=== PATIENT | male | born 1960 | race Caucasian/White ===

== ENCOUNTER 2024-07-03 14:17 | Emergency (ER) | payer OTHER, SELFPAY ==
[2024-07-03 14:22] VITALS: BP 164/109; PULSE 65; TEMP 36.4; O2SAT 94; BMI 30.5
--- NOTE | 2024-07-03 14:33 | CT_ITS ---
[address] [address] Patient Name: KIMBERLY BAEZA MRN: [id number] date: 1960 Sex: M Assigned Patient Location: ER Current Patient Location: Accession/Order Number: [id number] Exam Date: 07/03/2024 14:58 Report Date: 07/03/2024 15:31 At the request of: EMIL CAIN Procedure: CT abdomen pelvis wo con EXAMINATION: CT abdomen pelvis wo con HISTORY: Hematuria COMPARISON: No relevant comparison available. TECHNIQUE: Axial, Coronal, and Sagittal images were obtained without and/or with IV contrast as indicated by examination type. Dose reduction techniques were achieved by using automated exposure control and/or adjustment of mA and/or kV according to patient size and/or use of iterative reconstruction technique. FINDINGS: LUNG BASES: Curvilinear opacity within lateral left lung base suspected to represent scarring. LIVER: No enlargement, atrophy, suspicious density, or significant focal lesion. BILIARY: No dilatation or calcification. PANCREAS: No lesion, fluid collection, or abnormal duct dilatation. SPLEEN: No enlargement or focal lesion. ADRENALS: No mass or enlargement. KIDNEYS: Low-density left renal cysts favoring benign etiology. No mass, obstruction, or calcification. BOWEL/MESENTERY: No visible mass, obstruction, or bowel wall thickening. AORTA/VASCULAR: No aneurysm or dissection. RETROPERITONEUM: No mass or adenopathy. LYMPH NODES: No adenopathy. URINARY BLADDER: 7.0 x 5.3 x 3.8 cm mass along left lateral wall within the bladder. Dense debris possibly representing blood products within posterior aspect of the bladder versus additional mass. Borderline wall thickening of the anterior wall of the urinary bladder. Multiple calcifications within the bladder; some may represent stones within the dependent aspect of the bladder; others are calcifications within the left lateral wall mass. PELVIC ORGANS: No visible mass. Pelvic organs appropriate for patient age. ABDOMINAL WALL: No mass or hernia. BONES: No bony lesion or fracture. OTHER: Negative. CT/CT abdomen pelvis wo con IMPRESSION: 1. Large 7.0 cm mass within urinary bladder arising from the left lateral wall. 2. Clotted blood products and calcifications layering within the posterior aspect of the bladder versus additional bladder wall mass. 3. No appreciable penetration through the bladder wall or lymphadenopathy. Electronically authenticated by: LIO REZA Date: 07/03/2024 15:31
--- NOTE | 2024-07-03 14:33 | ED.MALEGU1 ---
HPI - Male Genitourinary General Chief complaint: Urogenital-Male Stated complaint: BLOOD IN URINE Time Seen by Provider: 07/03/24 14:20 Source: patient Mode of arrival: walk-in History of Present Illness HPI Narrative: Patient is a 63-year-old male who presents to the emergency department for blood in his urine that he noted today with mild discomfort with urination. He has no significant abdominal pain, no flank or back pain. He denies any known history of kidney stones or kidney problems but states he has passed sediment in his urine previously. No nausea or vomiting. He does not take any blood thinners. Related Data Home Medications ?Medication ?Instructions ?Recorded ?Confirmed budesonide-formoterol HFA 160 2 puff inhalation Q12H 07/03/24 07/03/24 mcg-4.5 mcg/actuation aerosol inhaler (Breyna) glyburide 1.25 mg tablet 1.25 mg PO DAILY 07/03/24 07/03/24 losartan 50 mg tablet (Cozaar) 50 mg PO DAILY 07/03/24 07/03/24 metformin 1,000 mg 24 hr 1,000 mg PO BID 07/03/24 07/03/24 tablet,extended release (gastric reten.) (Glumetza) Previous Rx's ?Medication ?Instructions ?Recorded ciprofloxacin HCl 500 mg tablet 500 mg PO Q12H #14 tabs 07/03/24 ondansetron 4 mg disintegrating 4 mg PO Q6H PRN nausea and 07/03/24 tablet vomiting #12 tabs Allergies Allergy/AdvReac Type Severity Reaction Status Date / Time No Known Drug Allergies Allergy Verified 07/03/24 14:22 Review of Systems ROS Constitutional Denies: fever or chills Ears, nose, mouth, and throat Denies: throat pain or nasal congestion Cardiovascular Denies: chest pain Respiratory Denies: shortness of breath Gastrointestinal Denies: abdominal pain, nausea or vomiting Genitourinary Reports: painful urination, urinary frequency and blood in urine Musculoskeletal Denies: back pain Integumentary/Breast Denies: rash Neurological Denies: numbness in extremities or weakness in extremities Hematologic/Lymphatic Denies: easy bruising or easy bleeding PFSH PFSH Social History Little interest or pleasure in doing things: not at all Feeling down, depressed, or hopeless: not at all Exam Narrative Exam Narrative: Gen.: Awake, alert, in no distress Head: Normocephalic, atraumatic ENT: Moist mucous membranes Respiratory: No respiratory distress Gastrointestinal: Abdomen is soft, nondistended and nontender to palpation Back: No CVA tenderness Extremities: Moves extremities equally Psych: Normal mood and affect Neuro: No focal neuro deficit Skin: Warm, dry, intact Constitutional Vital Signs, click to edit/add: Last Vital Signs Temp 97.6 F 07/03/24 14:22 Pulse 65 07/03/24 14:22 Resp 18 07/03/24 14:22 BP 158/76 H 07/03/24 16:33 Pulse Ox 94 L 07/03/24 14:22 O2 Del Method Room Air 07/03/24 14:22 Course Vital Signs Vital signs: Vital Signs Temperature 97.6 F 07/03/24 14:22 Pulse Rate 65 07/03/24 14:22 Respiratory Rate 18 07/03/24 14:22 Blood Pressure 164/109 H 07/03/24 14:22 Pulse Oximetry 94 L 07/03/24 14:22 Oxygen Delivery Method Room Air 07/03/24 14:22 Temperature 97.6 F 07/03/24 14:22 Pulse Rate 65 07/03/24 14:22 Respiratory Rate 18 07/03/24 14:22 Blood Pressure 158/76 H 07/03/24 16:33 Pulse Oximetry 94 L 07/03/24 14:22 Oxygen Delivery Method Room Air 07/03/24 14:22 MDM - Male Genitourinary MDM Narrative Medical decision making narrative: This patient is hemodynamically stable, his urine specimen shows blood clot and significant blood, bladder scan showed greater than 400 mL in the bladder. I discussed a Cornell catheter placement with this patient and he is agreeable. Cornell catheter was placed and irrigated with improvement of blood-tinged urine. Patient was found to have stable labs and CT scan showing a 7 cm mass in his bladder. He was reevaluated by attending physician who gave him these results and I did contact [facility] to set up a follow-up appointment for him. He should call the office tomorrow morning for an appointment time. We do not have urology coverage at this time to discuss directly with her provider. Patient understands that if his Cornell catheter stops draining or he has worsening symptoms he should return to the ER for bladder irrigation. He was given education on Cornell catheter for home. He is started on Cipro, Zofran. Return to the ER if symptoms change or worsen SHARED APC VISIT, PHYSICIAN ATTESTATION: [id number] I performed a substantive part of the MDM during the patient?s E/M visit. I personally evaluated and examined the patient. I personally made or approved the documented management plan and acknowledge its risk of complications. Medical Records Attestation: I reviewed the patient's medical records. Lab Data Attestation: I reviewed the patient's lab results. Labs: Lab Results 07/03/24 07/03/24 Range/Units 14:35 14:57 WBC 11.9 H (4.0-11.0) 10^3/uL RBC 4.77 (4.70-6.10) 10^6/uL Hgb 14.8 (14.0-18.0) g/dL Hct 45.1 (42.0-54.0) % MCV 94.5 H (80.0-94.0) fL MCH 31.0 (25.9-34.0) pg MCHC 32.8 (29.9-35.2) g/dL RDW 12.4 (11.0-15.0) % Plt Count 256 (150-450) 10^3/uL MPV 9.7 (9.5-13.5) fL Neut % (Auto) 73.3 (43.0-75.0) % Lymph % (Auto) 17.6 L (20.5-60.0) % [place] % (Auto) 7.4 (1.7-12.0) % Eos % (Auto) 0.9 (0.9-7.0) % Baso % (Auto) 0.5 (0.2-2.0) % Neut # (Auto) 8.7 H (1.4-6.5) 10^3/uL Lymph # (Auto) 2.1 (1.2-3.8) 10^3/uL [place] # (Auto) 0.9 H (0.3-0.8) 10^3/uL Eos # (Auto) 0.1 (0.0-0.7) 10^3/uL Baso # (Auto) 0.1 (0.0-0.1) 10^3/uL Abs Immat Gran (auto) 0.04 H (0.00-0.03) 10^3/uL Imm/Tot Granulo (auto) 0.3 (0.0-0.5) % Sodium 140 (136-145) mmol/L Potassium 4.1 (3.5-5.1) mmol/L Chloride 104 (98-107) mmol/L Carbon Dioxide 26.0 (21.0-32.0) mmol/L Anion Gap 14.1 BUN 16.0 (7.0-18.0) mg/dL Creatinine 0.92 (0.70-1.30) mg/dL Est GFR ( Amer) >60 (>=60 mL/min/1.73m^2) Est GFR (Non-Af Amer) >60 (>=60 mL/min/1.73m^2) BUN/Creatinine Ratio 17.4 Glucose 192 H (74-106) mg/dL Calcium 8.5 (8.5-10.1) mg/dL Urine Color Dk. red (YELLOW) Urine Clarity Turbid A (CLEAR) Urine pH Color interference A (5.0-9.0) Ur Specific [place] 1.015 (1.005-1.025) Urine Protein Color interference A (NEG/TRACE) mg/dL Urine Glucose (UA) Color interference A (NEGATIVE) mg/dL Urine Ketones Color interference A (NEGATIVE) mg/dL Urine Occult Blood Color interference A (NEGATIVE) Urine Nitrite Color interference A (NEGATIVE) Urine Bilirubin Color interference A (NEGATIVE) Urine Urobilinogen Color interference A (0.2-1.0) EU/dL Ur Leukocyte Esterase Color interference A (NEGATIVE) Urine RBC >100 A (0-2) #/HPF Urine WBC 0-2 A (NONE SEEN) #/HPF Ur Squamous Epith Cells None seen (NONE/RARE) #/LPF Urine Crystals None seen (None Seen) #/HPF Urine Bacteria Small A (NONE SEEN) #/HPF Urine Casts None seen (NONE SEEN) #/LPF Urine Mucus None seen (NONE SEEN) Ur Culture Indicated? Yes Imaging Data CT scan - abdomen: Attestation: I have reviewed the pertinent imaging results. Radiologist's impression: ITS Impressions Abdomen/Pelvis CT 10/23/24 14:33 IMPRESSION: 1. Large 7.0 cm mass within urinary bladder arising from the left lateral wall. 2. Clotted blood products and calcifications layering within the posterior aspect of the bladder versus additional bladder wall mass. 3. No appreciable penetration through the bladder wall or lymphadenopathy. Electronically authenticated by: LIO REZA Date: 07/03/2024 15:31 Discharge Plan Discharge Chief Complaint: Urogenital-Male Clinical Impression: Mass of bladder, Acute urinary retention, Hematuria Patient Disposition: Home, Self-Care Time of Disposition Decision: 16:53 Condition: Good Prescriptions / Home Meds: New ciprofloxacin HCl 500 mg tablet 500 mg PO Q12H Qty: 14 0RF ondansetron 4 mg tablet,disintegrating 4 mg PO Q6H PRN (Reason: nausea and vomiting) Qty: 12 0RF No Action metformin [Glumetza] 1,000 mg tablet,ER lluvia.retention 24 hr 1,000 mg PO BID losartan [Cozaar] 50 mg tablet 50 mg PO DAILY glyburide 1.25 mg tablet 1.25 mg PO DAILY budesonide-formoterol [Breyna] 160-4.5 mcg/actuation HFA aerosol inhaler 2 puff inhalation Q12H Print Language: Maldivian Instructions: Cornell Catheter Placement and Care (ED), Hematuria (ED) Additional Instructions: Please call [facility] tomorrow morning for scheduling an appointment - [phone] Referrals: Physician,Non-Staff, MD [Primary Care Provider] - 1 week
[2024-07-03 14:48] LABS: Clarity Urine TURBID (CLEAR); Color Urine DK. RED (YELLOW); Specific Gravity Urine 1.015 (1.005-1.025)
[2024-07-03 14:52] LABS: Bilirubin Urine COLOR INTERFERENCE (NEGATIVE); Blood Urine COLOR INTERFERENCE (NEGATIVE); Glucose Urine UA COLOR INTERFERENCE mg/dL (NEGATIVE); Ketones Urine COLOR INTERFERENCE mg/dL (NEGATIVE); Protein Urine COLOR INTERFERENCE mg/dL (NEG/TRACE); pH Urine COLOR INTERFERENCE (5.0-9.0)
[2024-07-03 14:53] LABS: Leukocyte Esterase Urine COLOR INTERFERENCE (NEGATIVE); Nitrite Urine COLOR INTERFERENCE (NEGATIVE); Urine Microscopic Indicated YES; Urobilinogen Urine COLOR INTERFERENCE EU/dL (0.2-1.0)
[2024-07-03 14:59] LABS: Bacteria Urine SMALL #/HPF (NONE SEEN); Mucus Urine NONE SEEN (NONE SEEN); RBC Urine >100 #/HPF (0-2); Squamous Epithelial Cell Urine NONE SEEN #/LPF (NONE/RARE); WBC Urine 0-2 #/HPF (NONE SEEN)
[2024-07-03 15:00] LABS: Cast Seen? NONE SEEN #/LPF (NONE SEEN); Crystals Seen? None Seen #/HPF (None Seen); Urine Culture Indicated YES
[2024-07-03 15:03] LABS: Basophils Absolute Auto 0.1 10^3/uL (0.0-0.1); Basophils Percent Auto 0.5 % (0.2-2.0); Eosinophils Absolute Auto 0.1 10^3/uL (0.0-0.7); Eosinophils Percent Auto 0.9 % (0.9-7.0); Hematocrit 45.1 % (42.0-54.0); Hemoglobin 14.8 g/dL (14.0-18.0); Immature Granulocytes Abs Auto 0.04 10^3/uL (0.00-0.03); Immature Granulocytes Pct Auto 0.3 % (0.0-0.5); Lymphocytes Absolute Auto 2.1 10^3/uL (1.2-3.8); Lymphocytes Percent Auto 17.6 % (20.5-60.0); Mean Corpuscular HGB Conc 32.8 g/dL (29.9-35.2); Mean Corpuscular Volume 94.5 fL (80.0-94.0); Mean Platelet Volume 9.7 fL (9.5-13.5); Monocytes Absolute Auto 0.9 10^3/uL (0.3-0.8); Monocytes Percent Auto 7.4 % (1.7-12.0); Neutrophils Absolute Auto 8.7 10^3/uL (1.4-6.5); Neutrophils Percent Auto 73.3 % (43.0-75.0); Platelet Count 256 10^3/uL (150-450); Red Blood Count 4.77 10^6/uL (4.70-6.10); Red Cell Distribution Width 12.4 % (11.0-15.0); White Blood Count 11.9 10^3/uL (4.0-11.0)
[2024-07-03 15:13] LABS: Anion Gap 14.1; BUN Creatinine Ratio 17.4; Calcium 8.5 mg/dL (8.5-10.1); Chloride 104 mmol/L (98-107); Estimated GFR (African America >60 (>=60 mL/min/1.73m^2); Estimated GFR (Non-African Ame >60 (>=60 mL/min/1.73m^2); Glucose 192 mg/dL (74-106); Potassium 4.1 mmol/L (3.5-5.1); Sodium 140 mmol/L (136-145)
[2024-07-03] MEDS: SODIUM CHLORIDE 0.9% IRRIG SOLUTION 1,000 ML BOTTLE 1000 ML IRR (15:40)
[2024-07-03] MEDS: LIDOCAINE 2% JELLY 10 ML UR (15:40)
[2024-07-03 16:33] VITALS: BP 158/76
== END 2024-07-03 17:13 | disposition home or self-care (01) ==
PROVIDERS: Physician Assistant; Emergency Provider Emergency Medicine
DX: R31.9 Hematuria, unspecified (principal); R33.9 Retention of urine, unspecified; N32.9 Bladder disorder, unspecified
CPT/HCPCS: 36415; 51702; 74176; 80048; 81001; 85025; 87086; 99285